=== PATIENT | male | born 1980 | race American Indian/Alaskan Native ===

== ENCOUNTER 2018-01-02 14:13 | Emergency (ER) | payer SELFPAY ==
[2018-01-02 16:57] LABS: Basophils # (Auto) 0.1 K/mm3 (0.0-0.1); Basophils % (Auto) 0.6 % (0.0-1.8); Eosinophils # (Auto) 0.1 K/mm3 (0.0-0.4); Eosinophils % (Auto) 1.4 % (0.0-4.3); Hematocrit 41.4 % (35.5-45.6); Hemoglobin 14.2 gm/dl (11.8-15.2); Lymphocytes # (Auto) 3.3 K/mm3 (1.2-5.4); Lymphocytes % (Auto) 35.3 % (13.4-35.0); Mean Corpuscular HGB Conc 34 % (32-34); Mean Corpuscular Hemoglobin 32 pg (28-32); Mean Corpuscular Volume 94 fl (84-94); Monocytes # (Auto) 0.7 K/mm3 (0.0-0.8); Monocytes % (Auto) 8.1 % (0.0-7.3); Platelet Count 117 K/mm3 (140-440); Red Blood Count 4.39 M/mm3 (3.65-5.03); Red Cell Distribution Width 14.4 % (13.2-15.2)
[2018-01-02 17:11] LABS: Alanine Aminotransferase 10 units/L (7-56); Albumin 4.2 g/dL (3.9-5); BUN/Creatinine Ratio 11; Blood Urea Nitrogen 13 mg/dL (9-20); Calcium 9.2 mg/dL (8.4-10.2); Hemolysis Index 9
[2018-01-02 19:01] LABS: Bilirubin,Urine NEG (Negative); Blood,Urine NEG (Negative); Color,Urine Yellow (Yellow); Mucus,Urine FEW /HPF; Protein,Urine <15 mg/dL mg/dL (Negative); WBC,Urine < 1.0 /HPF (0.0-6.0)
[2018-01-02] MEDS ORDERED: TORADOL IM ONE (20:00)
[2018-01-02] MEDS ORDERED: TORADOL ONE (20:01)
[2018-01-02] MEDS ORDERED: MORPHINE IM ONE (21:07)
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
[2018-01-02 21:44] LABS: Lipase 33 units/L (13-60)
--- NOTE | 2018-01-02 23:33 | Cat Scan Report ---
FINAL REPORT EXAM: CT ABDOMEN PELVIS WO CON HISTORY: hx of left kidney resection, left sided abd pain TECHNIQUE: CT abdomen and pelvis without contrast PRIORS: None. FINDINGS: No acute abnormality identified in the lung bases. No focal abnormality identified within the liver parenchyma. The spleen demonstrates normal size and attenuation. No pancreatic abnormalities seen. Right kidney demonstrates no evidence of hydronephrosis or nephrolithiasis. No ureteral calculus identified. Left kidney is surgically absent. The adrenal glands are unremarkable. Abdominal aorta is normal in caliber. No pathologically enlarged lymph nodes are identified. No signs of free fluid or free air No evidence of small bowel dilatation. No pericolonic inflammatory changes are observed. Urinary bladder is unremarkable. IMPRESSION: Status post left nephrectomy No acute abnormalities seen
[2018-01-02] MEDS ORDERED: NORCO 5/325 PO ONE (23:58)
[2018-01-03 01:14] VITALS: BP 144/100
== END 2018-01-03 00:10 | disposition home or self-care (01) ==
LOC: ED 14:13
DX: R10.9 Unspecified abdominal pain (principal); G89.29 Other chronic pain; Z90.5 Acquired absence of kidney
CPT/HCPCS: 36415; 74176; 80053; 81001; 82150; 82550; 83690; 85025; 99284; J1885; J2270

== ENCOUNTER 2018-03-31 11:44 | Emergency (ER) | payer SELFPAY ==
[2018-03-31 13:22] VITALS: BP 124/89
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
== END 2018-03-31 14:45 | disposition home or self-care (01) ==
LOC: ED 11:44
DX: R10.9 Unspecified abdominal pain (principal); G89.29 Other chronic pain; Z53.21 Procedure and treatment not carried out due to patient leaving prior to being seen by health care provider

== ENCOUNTER 2018-10-11 18:22 | Emergency (ER) | payer SELFPAY ==
[2018-10-11 18:34] VITALS: BP 119/95
[2018-10-11 19:34] LABS: Bilirubin,Urine NEG (Negative); Blood,Urine NEG (Negative); Color,Urine Yellow (Yellow); Mucus,Urine FEW /HPF; Protein,Urine <15 mg/dL mg/dL (Negative); Urobilinogen,Urine < 2.0 mg/dL (<2.0); WBC,Urine < 1.0 /HPF (0.0-6.0)
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
[2018-10-11] MEDS ORDERED: NORCO 5/325 PO ONE (23:16)
[2018-10-11] MEDS ORDERED: FLEXERIL PO ONE (23:16)
== END 2018-10-12 00:34 | disposition home or self-care (01) ==
LOC: ED 18:22
DX: M54.5 Low back pain (principal); G89.29 Other chronic pain; F17.200 Nicotine dependence, unspecified, uncomplicated; F32.9 Major depressive disorder, single episode, unspecified; F41.9 Anxiety disorder, unspecified
CPT/HCPCS: 81001; 99283